=== PATIENT | female | born 1965 | race Caucasian/White ===

== ENCOUNTER 2016-08-10 02:36 | Emergency (ER) | payer BC ==
[2016-08-10] MEDS ORDERED: LORazepam 2 MG/ML DISP.SYRIN IV ONE (03:00)
[2016-08-10] MEDS ORDERED: MORPHINE SULFATE 10 MG/ML SYRG IV ONE (03:00)
[2016-08-10] MEDS ORDERED: MORPHINE SULFATE 10 MG/ML SYRG ONE (03:03)
[2016-08-10] MEDS ORDERED: LORazepam 2 MG/ML DISP.SYRIN ONE (03:04)
[2016-08-10] MEDS ORDERED: NORMAL SALINE 1,000 ML IV PRN (03:10)
--- NOTE | 2016-08-10 03:10 | ERNOTE ---
Medical Problem HPI - Narrative Date of Service: 08/10/16 - General Chief Complaint: General Assessment Time Seen by Provider: 08/10/16 02:52 Source: patient, family - Immun/Allergies/Home Medications Immunizations: IMMUNIZATION HX Immunizations Up to Date Yes History of Influenza Vaccine No Hx Pneumococcal Vaccination No Allergies/Adverse Reactions: Allergies Iodinated Contrast Media - Oral and Allergy (Severe, Verified 08/10/16 02:47) Swelling of Throat azithromycin [From Zithromax] Allergy (Intermediate, Verified 08/10/16 02:47) Other morphine Allergy (Intermediate, Verified 08/10/16 02:47) Itching penicillin V Allergy (Intermediate, Verified 08/10/16 02:47) Other dermabond Allergy (Intermediate, Uncoded 08/10/16 02:47) Other Home Medications: HOME MEDICATIONS ALPRAZolam [Xanax] 1 mg PO DAILY PRN 09/05/13 [Last Taken Unknown] Albuterol Sulfate [Proair Hfa] 2 puff IH PRN PRN 09/05/13 [Last Taken Unknown] Estradiol [Estrace] 0.5 mg PO DAILY 09/05/13 [Last Taken Unknown] Fluvoxamine Maleate 200 mg PO HS 09/05/13 [Last Taken Unknown] Levothyroxine Sodium [Synthroid] 100 mcg PO DAILY 09/05/13 [Last Taken Unknown] Zolpidem Tartrate [Ambien Cr] 12.5 mg PO HS 09/05/13 [Last Taken Unknown] Alprazolam 1 mg PO Q8H PRN #12 tablet 08/10/16 [Last Taken Unknown] Cholecalciferol [Vitamin D] 1,000 unit PO DAILY 08/10/16 [Last Taken Unknown] HYDROcodone/ACETAMINOPHEN [Quincy 5-325 Tablet] 1 each PO Q8H PRN #12 tablet 03/28 [Last Taken Unknown] HYDROcodone/ACETAMINOPHEN [Quincy 5-325] 1 tab PO Q4H PRN 08/10/16 [Last Taken Unknown] - History of Present History Narrative: Since a 50-year-old female who comes to the emergency department with multiple somatic complaints. The patient states that she has a "lesion" on her left kidney which she says must be cancer. She has had 2 CAT scans and MRI but has refused to have biopsies performed. The patient states that she had a cystoscopy done in March and since then has been having incontinence which is primarily stress incontinence. The patient states that she takes Xanax 1 mg 3 times a day. She takes hydrocodone 5/325 and takes that at least 6 times a day. The patient tearfully admits that she has not had any of her medicine in 3 days. She says "someone takes it". When I ask her who takes it she says that it "family members going in and out of the house". When I asked her to be a bit more specific she motions to the gentleman sitting with her and says she thinks he is taking it. Again the patient states that she hasn't had medicine in 3 days. When I discussed this with her further however she says that she is actually taken Xanax within the last 3 days. She is insistent she hasn't had any pain medicine despite having no yawning and no poikilothermia. The patient states that since this evening she has been having diffuse aches over her entire body. She says that she has a headache, neck ache, backache. She says that she has "for bad disks in her neck" she also says that she has several bad disks in her back. She says that when she stands up she loses control of her bladder. She says that this is very unusual for her. The patient denies fever or chills she denies nausea or vomiting she denies cough or chest pain. Denies numbness or tingling she denies recent falls or trauma she has had no stool incontinence. Review of Systems - Review of Systems Constitutional: Present: fatigue, malaise EYE: Present: no symptoms reported ENT: Present: no symptoms reported Respiratory: Present: no symptoms reported Cardiology: Present: no symptoms reported Gastrointestinal/Abdominal: Present: no symptoms reported Genitourinary: Present: other - says that she has incontinence when she stands up. Musculoskeletal: Present: back pain, muscle pain, neck pain, joint pain Skin: Present: no symptoms reported Neurological: Present: other - significant anxiety but no focal deficits. Only neurological complaint is possible incontinence. This seems to be under control when she is laying down but only when she stands she incontinent of urine Endocrine: Present: no symptoms reported Hematologic/Lymphatic: Present: no symptoms reported Psych: Present: anxiety, depressed All Other Systems: All systems neg except as marked - Patient's Past Medical History Patient History - Medical: Anxiety, Depression, Kidney stone, Seizures Patient History - Cardiac/Respiratory: COPD Patient History - Surgical Procedures: Cholecystectomy, Hysterectomy - Social History Living Situations: home Psych History: Hx of Anxiety, Hx of Depression Smoking Status: Current every day smoker Alcohol Use: none Drug Use: none - Immunizations Immunizations Up to Date: Yes Hx Pneumococcal Vaccination: No History of Influenza Vaccine: No Physical Exam - Physical Exam General Appearance: Present: wd/wn, moderate distress, other - the patient is tremulous and tearful. She does have a stuffy nose. Her pupils are mydriatic. Eye Exam: Normal inspection: bilateral, PERRL: bilateral, EOMI: bilateral Ears, Nose, Throat: Present: normal ENT inspection, normal except -, hearing decreased, normal pharynx Neck: Present: normal inspection, other - patient has diffuse tenderness. No point tenderness over the vertebra Respiratory: Present: no respiratory distress, normal breath sounds, lungs clear Cardiovascular/Chest: Present: regular rate, rhythm, no murmur, normal peripheral pulses Gastrointestinal/Abdominal: Present: normal bowel sounds, nontender, nondistended, soft, no organomegaly Rectal Exam: Present: decreased tone, other - the patient has decreased rectal tone. It is not absent. She does not seem to be able to completely squeeze her sphincter down on my finger. There is whether this is poor effort or not. Back Exam: Present: normal inspection, normal range of motion, no CVA tenderness , no vertebral tenderness Extremity Exam: Present: normal inspection, non-tender, normal range of motion, no edema Neurological Exam: Present: alert, oriented, normal mood/affect, no motor/ sensory deficits Skin Exam: Present: normal color, warm/dry Lymphatic Exam: Present: no adenopathy ED Progress - Results and Orders Patient's Lab Results:: I have reviewed the patient's lab results. Results and Orders: Patient had laboratories performed - Vital Signs Patient's Vital Signs:: I have reviewed the patient's vital signs. Vital Signs: Vital Signs 08/10/16 02:41 Temperature 37.1 C Pulse Rate 97 Respiratory 14 Rate Blood Pressure 119/71 O2 Sat by Pulse 95 Oximetry - Progress/Reassessment Chief Complaint: General Assessment Progress:: Improved Progress Note-Subjective: 08/10/16 03:29 During the evaluation of the patient she broke down in tears and admitted that she abuses her drugs. She says she uses Xanax and Vicodin to get high. She apparently has run out of medicines so many times that her doctor fired her and referred her to a pain management doctor. She is afraid if she goes for pain management doctor and says that she is out of medicine he [facility] will cut her off. She asks for help with getting into a rehabilitation center. I do not know any rehabilitation centers in the area as I am new, but the nursing staff has graciously agreed to offer her this assistance The patient was given 1 mg of Ativan IV and 5 mg of morphine IV. Her heart rate was initially 102. Within 5 minutes it had dropped to 68. The patient is more comfortable however she still tearful. She is now complaining of all of her psychological pain from past experiences. I've informed her that these things which need to be addressed however beyond the scope of an emergency room visit. 08/10/16 04:23 The patient has received 500 mL of saline and has been watched for half an hour. She says that she feels fullness in her bladder. We stood her up to see if she still had incontinence. She had a large flow of urine and still is incontinent. In this woman who has a history of a possible lesion on her kidney which has not been evaluated in the last several months coupled with incontinence of urine and back pain along with rectal tone which is less than ideal, I think evaluation for cauda equina syndrome is appropriate. Unfortunately she has a dye allergy. She says when she uses IV The patient has a dye allergy. I've attempted to obtain a stat MRI here. Unfortunately there are no technicians who can perform the study available. I am left with transferring the patient to [place] to get the study done however if the study is positive she would need to be transferred to us place with neurosurgery. Therefore the patient will need to be transferred to [facility]. I am discussing this with the patient. In light she is willing to give informed consent and decided she does not want to have this procedure done transfer will occur I discussed at length with the patient fact that she needs an MRI to rule out cauda equina syndrome. The patient is adamant that she will not have this done right now. I have advised the patient of the risks, benefits, alternatives. She has agreed to sign out AGAINST MEDICAL ADVICE. This was witnessed by the patient's nurse ede . The patient states that she is going to go back home and take care of her dog. If she continues having symptoms she is going to travel by personal vehicle to [place] urinating on herself - Transfer of Care Pending Results: CT/MRI results Plan - Plan Plan: The patient is signing out AGAINST MEDICAL ADVICE. She is given a prescription for 12 1 mg Xanax tablets. She is given a prescription for 12 5/325 Quincy tablets. She is aware these will not be refilled in the emergency department. Departure - Departure Clinical Impression: Urinary incontinence Disposition: Home self-care Condition: Undetermined Additional Instructions: As we discussed, I have concern that the nerves T or bladder are not working right. I'm concerned that something is pressing on these nerves. The only way we can get a test to look at these as with an MRI due to a contrast allergy. I would encourage her to follow up with the emergency department as soon as possible. Certainly may return here if you so wish. I've given a prescription for 12 tablets of Xanax and 12 tablets of Quincy. Do not share these with anyone else. With these are gone they are gone. We discussed just talking to your insurance company about finding a drug treatment center. I think this would be very [place]acruz, and in your best interest. Follow-up with her family doctor Return for new or worrisome symptoms Prescriptions: Alprazolam 1 mg PO Q8H PRN #12 tablet PRN Reason: Anxiety HYDROcodone/ACETAMINOPHEN [Quincy 5-325 Tablet] 1 each PO Q8H PRN #12 tablet PRN Reason: Pain
--- OUTSIDE RECORDS SUMMARY | 2016-08-10 03:31 | XMS REPORT | Continuity of Care Document ---
:1965 Author Organization [facility] [place] [address] Phone [phone] Care Team Providers Name Role Phone Unavailable Primary Care Provider Unavailable Active Allergies and Adverse Reactions Allergen Noted Date Severity Reactions Comments Benadryl 11/07/2010 Medium Other (See Comments) dries her out Dye 11/07/2010 Erythromycin 11/07/2010 Medium GI Upset Penicillins 11/07/2010 Risperdal 11/07/2010 Current Medications Always verify current medications with the patient because some medications mayno longer be current as of this document. Prescription Sig. Disp. Refills Start Date End Date Status estradiol (ESTRACE) 0.5 MG Take 0.5 mg by Active tablet mouth daily. fluvoxamine (LUVOX) 50 MG Take 1 Tab by 30 Tab 0 11/20/2010 Active tablet mouth nightly. levothyroxine (SYNTHROID) Take 1 Tab by 30 Tab 0 11/20/2010 Active 50 MCG tablet mouth daily. 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55 11/14/2010 6:03 AM CDT Oxygen Saturation - - Plan of Care Health Maintenance Due Date Last Done Comments [facility] Hmt Dtap/Tdap/Td Vaccines (1 - Tdap) 12/16/[facility] Cervical Cancer Screening 12/16/1984 [facility] Breast Cancer Screening 2003 [facility] Colon Cancer Screening 12[facility]16/2013 [facility] Influenza 09/09/2016 Results from Last 3 Months Not on file
[2016-08-10 04:34] LABS: Urine Bilirubin Negative (NEGATIVE); Urine Ketone Negative (NEGATIVE); Urine Nitrite Negative (NEGATIVE); Urine Protein Negative (NEGATIVE); Urine Specific Gravity <=1.005 SP.GR. (1.005-1.010); Urine Urobilinogen Normal (NORMAL)
[2016-08-10 04:38] LABS: Hematocrit 38.1 % (37.0-47.0); Hemoglobin 13.5 gm/dL (12.5-16.0); Mean Cell Volume 95.5 fl (78-100); Mean Corpuscular Hemoglobin 33.8 pg (27-31); Mean Corpuscular Hgb Conc 35.4 g/dl (32-36); Mean Platelet Volume 8.3 fl (6.0-9.5); Neutrophil # 6.8 K/mm3 (1.3-6.0); Neutrophil % 65.3 % (42-75.0); Platelet Count 225 K/mm3 (150-450); Red Blood Count 3.99 M/mm3 (4.2-5.4); Red Cell Distribution Width 12.6 % (11.5-14.0); White Blood Count 10.4 K/mm3 (4.0-10.5)
[2016-08-10 04:45] LABS: Urine Appearance Clear; Urine Bacteria TRACE; Urine Blood 5 /ul (NEGATIVE); Urine Color Pale Yellow; Urine RBC None Seen /hpf (0-5); Urine WBC None Seen /hpf (0-5)
[2016-08-10 04:52] LABS: Albumin * 3.6 gm/dl (3.4-5.0); Anion Gap 11.1 mmol/L (6.8-13.8); BUN/Creatinine Ratio 9.8 (9.0-21.6); Bilirubin, Total 0.4 mg/dL (0.0-1.1); Ca. Corrected For Albumin 8.7 mg/dL (8.4-10.2); Calcium * 8.7 mg/dL (7.9-10.9); Carbon Dioxide 27.4 mmol/L (24-32.6); Potassium 3.5 mmol/L (3.4-4.6); Total Protein 6.6 gm/dL (6.2-8.2)
[2016-08-10 04:58] VITALS: BP 137/72
== END 2016-08-10 05:19 | disposition home or self-care (01) ==
LOC: ER 02:36
DX: R32 Unspecified urinary incontinence (principal); F41.8 Other specified anxiety disorders; Z72.0 Tobacco use; Z87.442 Personal history of urinary calculi; J44.9 Chronic obstructive pulmonary disease, unspecified; Z53.29 Procedure and treatment not carried out because of patient's decision for other reasons